=== PATIENT | female | born 2000 | race Caucasian/White ===

== ENCOUNTER 2019-08-14 13:35 | Emergency (ER) | payer OTHER, SELFPAY ==
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
[2019-08-14 13:52] VITALS: BP 107/68; PULSE 93; RESP 16; TEMP 37.2; O2SAT 99
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
[2019-08-14] MEDS: KETOROLAC (*BKC) 60 MG/2 ML VIAL IM (14:20)
== END 2019-08-14 14:55 | disposition home or self-care (01) ==
PROVIDERS: Emergency Provider Nurse Practitioner Family; PCP Family Medicine
DX: S13.9XXD Sprain of joints and ligaments of unspecified parts of neck, subsequent encounter (principal); S39.012D Strain of muscle, fascia and tendon of lower back, subsequent encounter; V43.52XA Car driver injured in collision with other type car in traffic accident, initial encounter
CPT/HCPCS: 72100; 96372; 99213; G0463; J1885

== ENCOUNTER 2020-03-16 19:56 | Emergency (ER) | payer OTHER, SELFPAY ==
--- NOTE | 2020-03-16 19:59 | ED.URI ---
HPI - URI/Sore Throat General Chief Complaint: Upper Respiratory Infection Stated Complaint: nany throat Time Seen by Provider: 03/16/20 20:08 Source: patient and RN notes reviewed Mode of arrival: ambulatory Limitations: no limitations History of Present Illness HPI Narrative: 20-year-old female presents with concern for sore throat, headache, nausea. Reports symptoms started yesterday. Reports she took Tylenol prior to arrival. Reports she had a fever today. Reports she was just diagnosed with chlamydia at her physician general internal medicine, was prescribed azithromycin, however has not picked up the antibiotic. Denies being sexually active in the last month. Denies any other intervention for her symptoms. MD elicited complaint: sore throat Related Data Home Medications Medication Instructions Recorded Confirmed levonorgestrel [Mirena] 1 device INTRAUTERINE ONCE 08/14/19 03/16/20 Allergies Allergy/AdvReac Type Severity Reaction Status Date / Time No Known Allergies Allergy Verified 03/16/20 19:59 Review of Systems Review of Systems: Narrative: CONSTITUTIONAL: Denies malaise, chills, sweats, or fever. EYES: Denies visual changes, redness, or discharge. ENT: Reports rhinorrhea, sinus pain, otalgia. Reports mild nasal congestion and sore throat. CARDIOVASCULAR: Denies chest pain, palpitations, or edema. RESPIRATORY: Denies cough or dyspnea. GASTROINTESTINAL: Denies abdominal pain, nausea, vomiting, diarrhea SKIN: Denies rash or itching. MUSCULOSKELETAL: Denies myalgia. NEUROLOGIC: Reports headache. All systems reviewed & are unremarkable except as noted in HPI and below PMFSH Past Medical History Medical History (Updated 03/16/20 @ 20:15 by Kassie Kelsey NP) No significant past medical history Surgical History Surgical History (Updated 08/14/19 @ 14:26 by SARITHA Wilkes) History of wisdom tooth extraction Gum graft Social History Social History (Updated 08/14/19 @ 14:27 by SARITHA Wilkes) Tobacco type: e-cigarettes/vaping Second hand tobacco smoke exposure: No Alcohol intake: never Gender identity (if verbalized by the patient): Female Comments At time of signature, agree with nursing past medical, surgical, social and family history. There is no relevant family history pertinent to the presenting complaint Exam Narrative: Exam Narrative: GENERAL: Well-appearing, well-nourished, and in no acute distress. HEAD: Normocephalic EYES: PERRLA, conjunctivae clear ENT: Nares clear, turbinates erythematous, clear discharge. Mucous membranes moist. TM pearly monsivais with sharp light reflex bilaterally; no tragal tenderness. Oropharynx erythematous without lesions. Tonsils enlarged and with exudate, no drooling, no hoarseness, no trismus, uvula midline. NECK: Supple. No lymphadenopathy CHEST: Clear to auscultation, breath sounds equal. No wheezing, rhonchi, rales, or stridor. No respiratory distress, speaks in full sentences. HEART: Regular rate and rhythm. No murmur heard. SKIN: Warm, dry, no rash. NEURO: Alert and oriented x3. PSYCH: Normal mood and affect Course Course Emergency Course: Patient is aware of diagnosis, understands and agrees to treatment plan. Anticipatory guidance given. Patient agrees to follow-up as directed and is aware of reasons to seek care at the emergency department. Portions of this record may have been created with voice recognition software Vital Signs Vital signs: Vital Signs Temperature 98.4 F 03/16/20 20:06 Pulse Rate 90 03/16/20 20:06 Respiratory Rate 16 03/16/20 20:06 Blood Pressure 119/69 03/16/20 20:06 Pulse Oximetry 98 03/16/20 20:06 Temperature 98.4 F 03/16/20 20:06 Pulse Rate 90 03/16/20 20:06 Respiratory Rate 16 03/16/20 20:06 Blood Pressure 119/69 03/16/20 20:06 Pulse Oximetry 98 03/16/20 20:06 Reviewed. MDM - URI/Sore Throat MDM Narrative Medical decision making narrative: Differential diagnosis considered:
[2020-03-16 20:06] VITALS: BP 119/69; PULSE 90; RESP 16; TEMP 36.9; O2SAT 98
== END 2020-03-16 20:19 | disposition home or self-care (01) ==
PROVIDERS: Emergency Provider Nurse Practitioner; PCP Family Medicine
DX: J02.9 Acute pharyngitis, unspecified (principal); F17.200 Nicotine dependence, unspecified, uncomplicated
CPT/HCPCS: 87081; 87880; 99213; G0463

== ENCOUNTER → 2020-11-22 09:59 | Outpatient (CLI) | payer OTHER, SELFPAY ==
[2020-11-23 20:07] LABS: SARS-CoV-2 RNA PCR Negative
== END ==
PROVIDERS: PCP Family Medicine; Visit Provider Physician Assistant
DX: R05 Cough (principal); Z20.822 Contact with and (suspected) exposure to COVID-19
CPT/HCPCS: C9803; U0003; U0005

== ENCOUNTER → 2022-06-07 13:06 | Outpatient (CLI) | payer OTHER, SELFPAY ==
--- NOTE | ~2022-06-07 | XR_ITS ---
XR lumbar spine min 4V DATE: 06/07/2022 13:35 INDICATION: Low back pain after coughing hard. TECHNIQUE: AP, lateral, coned lateral lumbosacral and bilateral oblique views COMPARISON: August 14, 2019 lumbar spine FINDINGS: No fracture or bone destruction. Included lower thoracic and lumbar pedicles are intact. Wanda mbar and lumbosacral interspaces appear well preserved. No spondylolysis or spondylolisthesis. The sa croiliac joints are intact. IMPRESSION: No significant abnormality Reviewed, dictated and finalized at location A. HER ADVISOR IMPRESSION: No significant abnormality
== END ==
PROVIDERS: PCP Family Medicine; Visit Provider Chiropractor
DX: M54.50 Low back pain, unspecified (principal)
CPT/HCPCS: 72110

== ENCOUNTER 2023-06-27 15:47 | Outpatient (CLI) | payer OTHER, SELFPAY ==
--- NOTE | ~2023-06-27 | US_ITS ---
EXAMINATION: US pelvic complete w TV DATE: 06/27/2023 16:39 INDICATION: Pelvic pain. TECHNIQUE: Multiple transabdominal and transvaginal sonographic images of the pelvis were obtained. COMPARISON: None. FINDINGS: TRANSABDOMINAL ULTRASOUND: The uterus measures 9.0 x 3.5 x 5.2 cm. There is physiologic free fluid in the pelvis. TRANSVAGINAL ULTRASOUND: The endometrial complex measures 6 mm in thickness. There is an intrauterine device in expected posit ion. The right ovary measures 3.2 x 1.4 x 2.3 cm. The left ovary measures 3.7 x 1.8 x 2.2 cm. There i s normal vascular flow in the ovaries. IMPRESSION: 1. Intrauterine device in expected position. Reviewed, dictated and finalized at location E. URCE ANALYST
== END 2023-06-27 15:48 | disposition home or self-care (01) ==
PROVIDERS: PCP Family Medicine; Visit Provider Nurse Practitioner
DX: R10.2 Pelvic and perineal pain (principal); Z97.5 Presence of (intrauterine) contraceptive device
CPT/HCPCS: 76830; 76856